=== PATIENT | male | born 1980 | race Caucasian/White ===

== ENCOUNTER 2021-07-11 15:51 | Inpatient (IN) | payer BC ==
[~2021-07-11] VITALS: Ht 170.2 cm; Wt 141.1 kg
[2021-07-11 17:02] LABS: BASOPHILS % (AUTO) 0.4 % (0-1); EOSINOPHILS # (AUTO) 0.2 X10'3 (0-0.9); EOSINOPHILS % (AUTO) 1.6 % (0-6); HEMATOCRIT 38.6 % (42.0-52.0); HEMOGLOBIN 12.8 g/dl (14.0-17.9); LYMPHOCYTES # (AUTO) 2.6 X10'3 (1.1-4.8); LYMPHOCYTES % (AUTO) 25.1 % (21-51); MEAN CORPUSCULAR HEMOGLOBIN 27.6 PG (27.0-31.0); MEAN CORPUSCULAR HGB CONC 33.1 g/dL (33.0-36.5); MEAN CORPUSCULAR VOLUME 83.4 FL (78-98); MEAN PLATELET VOLUME 6.3 FL (7.4-10.4); MONOCYTES # (AUTO) 0.6 X10'3 (0-0.9); NEUTROPHILS # (AUTO) 6.8 X10'3 (1.8-7.7); NEUTROPHILS % (AUTO) 66.9 % (42-75); PLATELET COUNT 228 X10'3 (140-440); RED BLOOD COUNT 4.63 X10'6 (4.70-6.10); RED CELL DISTRIBUTION WIDTH 15.3 % (11.5-14.5); WHITE BLOOD COUNT 10.2 X10'3 (4.5-11.0)
[2021-07-11 17:13] LABS: URINE AMPHETAMINE SCREEN NEGATIVE (Neg); URINE BARBITUATE SCREEN NEGATIVE (Neg); URINE BENZODIAZEPINES SCREEN NEGATIVE (Neg); URINE CANNABINOID SCREEN NEGATIVE (Neg); URINE COCAINE SCREEN NEGATIVE (Neg); URINE METHADONE SCREEN NEGATIVE (Neg); URINE OPIATE SCREEN NEGATIVE (Neg); URINE PHENCYCLIDINE SCREEN NEGATIVE (Neg)
[2021-07-11 17:29] LABS: CLARITY,URINE CLEAR (Clear); COLOR,URINE YELLOW (Yellow); GLUCOSE, URINE NEGATIVE (Neg); KETONES,URINE NEGATIVE (Neg); LEUKOCYTE ESTERASE ,URINE NEGATIVE (Neg); NITRITES, URINE NEGATIVE (Neg); OCCULT BLOOD,URINE NEGATIVE (Neg); PROTEIN,URINE NEGATIVE (Neg); UROBILINOGEN,URINE 0.2 E.U/dL (0.2-1.0)
[2021-07-11 17:30] LABS: UA COLLECTION TYPE URINAL
--- NOTE | 2021-07-11 17:32 | NUR ---
Received patient to bed #24. Pt ambulated independently, escorted by two PCT. Pt calm and cooperative.
[2021-07-11 17:33] LABS: ALANINE AMINOTRANSFERASE 35 U/L (12-78); ALBUMIN 3.7 G/DL (3.4-5.0); ALBUMIN/GLOBULIN RATIO 1.1 (1.1-1.5); ANION GAP 9 (8-16); ASPARTATE AMINO TRANSFERASE 20 U/L (10-37); BILIRUBIN,TOTAL 0.2 MG/DL (0.1-1.0); BLOOD UREA NITROGEN 15 MG/DL (7-18); CALCIUM 8.6 MG/DL (8.5-10.1); CHLORIDE 107 MMOL/L (99-107); ETHANOL < 0.010 GM/DL (0.0-0.010); GLUCOSE 88 MG/DL (70-104); POTASSIUM 4.1 MMOL/L (3.5-5.1); SODIUM 140 MMOL/L (135-145); TOTAL CARBON DIOXIDE 23.8 MMOL/L (24-32); TOTAL PROTEIN 7.1 G/DL (6.4-8.2); eGFR 83 ML/MIN
[2021-07-11] MEDS ORDERED: LATUDA PO (20:08)
[2021-07-11] MEDS ORDERED: CLON-527 PO (20:08)
[2021-07-11] MEDS ORDERED: FLUO20CA39 PO (20:08)
[2021-07-11] MEDS ORDERED: QUET-1 PO (20:08)
[2021-07-11] MEDS ORDERED: MULT-1085 PO (20:08)
[2021-07-11] MEDS ORDERED: IBUP-1984 PO (20:08)
--- NOTE | 2021-07-11 20:22 | NUR ---
Assumed care of the patient who was agitated and irritable. He refusded to answer most questions. Was very dramatic. Complain of high anxiety. Reports he feels like he is going to have a panic attack.
[2021-07-11] MEDS: clonazePAM 1mg tablet PO PRN (20:42)
[2021-07-11] MEDS: ibuprofen tablet 400 MG TABLET PO SCH (20:43)
--- NOTE | 2021-07-11 20:47 | NUR ---
Packet faxed to [facility]
[2021-07-11] MEDS ORDERED: quetiapine 100mg tablet PO SCH ×2 (21:00)
[2021-07-11] MEDS ORDERED: FLUoxetine 20mg capsule PO SCH (21:00)
[2021-07-11] MEDS ORDERED: LURASIDONE PO SCH ×2 (21:00)
[2021-07-11] MEDS ORDERED: QUEtiapine 25mg tablet PO SCH (21:00)
[2021-07-11] MEDS ORDERED: lurasidone 20mg tablet PO SCH (21:10)
[2021-07-11] MEDS ORDERED: LURA40TA2 PO (21:14)
--- NOTE | 2021-07-11 22:56 | NUR ---
THe patient appears to be sleeping
--- NOTE | 2021-07-11 23:53 | NUR ---
Nurse to nurse with [facility], Jesus
--- NOTE | 2021-07-12 00:27 | NUR ---
The patient appears to be sleeping
--- NOTE | 2021-07-12 01:54 | NUR ---
The patient appears to be sleeping
--- NOTE | 2021-07-12 04:35 | NUR ---
The patient appears to be sleeping
--- NOTE | 2021-07-12 07:00 | NUR ---
CARE ASSUMED JOSE MOURA RN. PT. VISIBLE ON THE UNIT LYING IN BED WITH EYES CLOSED. STAFF WILL CONTINUE TO MONITOR FOR SAFETY.
--- NOTE | 2021-07-12 08:45 | NUR ---
PT. AWAKE AT THIS TIME UP AMBULATED TO THE RESTROOM. PT. COMPLIANT WITH SCHEDULED MEDICATIONS. DENIES ANY CURRENT SI/HI OR A/V HALLUCINATIONS. PT. STATES HE SLEPT WELL AND FEELS BETTER OVERALL THIS MORNING. PT. ATE BREAKFAST THIS MORNING. VERBALIZE NO OTHER COMPLAINTS AT THIS TIME. STAFF WILL CONTINUE TO MONITOR FOR SAFETY.
[2021-07-12] MEDS: multivitamins, therapeutics tablet PO SCH (08:52)
[2021-07-12] MEDS: ibuprofen tablet 400 MG TABLET PO SCH ×2 (08:53→13:35)
--- NOTE | 2021-07-12 10:45 | NUR ---
PT. VISIBLE ON THE UNIT LYING IN BED RESTING. [employer] [employer] FROM INPATIENT UNIT IN AT THIS TIME, NOTIFIED PATIENT OF ACCEPTANCE TO THE INPATIENT UNIT. STAFF WILL CONTINUE TO MONITOR FOR SAFETY.
[2021-07-12] MEDS: clonazePAM 1mg tablet PO PRN ×2 (11:49→16:43)
--- NOTE | 2021-07-12 11:52 | NUR ---
PT. SITTING ON THE EDGE OF BED ROCKING BACKAND FORTH. PT. PRESENTS ANXIOUS UPON APPROACH. MEDICATED WITH KLONOPIN 1MG PO. STAFF WILL CONTINUE TO MONITOR FOR SAFETY.
--- NOTE | 2021-07-12 12:15 | NUR ---
PT. CALLED AT THIS TIME STATE SHE WILL BE IN TO VISIT. ALSO REQUESTING AN OFF DUTY STATUS FROM WORK LETTER FOR PATIENT. STATES SHE DOESN'T FEEL LIKE THE PATIENT IS ABLE TO RETURN TO WORK AT THIS TIME.
[2021-07-12] MEDS ORDERED: diphenhydrAMINE 50 mg/ml inj IM ONE (13:25)
[2021-07-12] MEDS ORDERED: LORazepam 2 mg/ml vial IM ONE (13:25)
--- NOTE | 2021-07-12 13:25 | NUR ---
PT. PLACED HIMSELF OM THE FLOOR AND BEGAN BANGING HIS HEAD. STAFF INTERVENED AND ASSISTED PT. BACK INTO THE BED. PT. CONTINUES TO REPEAT," I'VE DONE NOTHING WRONG , I'VE DONE NOTHING WRONG". PT. PRESENTS WITH INCREASED ANXIETY AND PARANOID. PT. HAS SMALL ALDAIR AREA ON FOREHEAD SKIN INTACT. DR. HAWKINS NOTIFIED OF PATIENT BEHAVIOR. ORDERED RECEIVED FOR ATIVAN 2MG AND BENADRYL 50 MG IM X 1 DOSE. STAFF WILL CONTINUE TO MONITOR.
--- NOTE | 2021-07-12 14:01 | NUR ---
AT BEDSIDE AT THIS TIME. AWAITNG PT. TRANSFER TO [facility].
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
--- NOTE | 2021-07-12 15:19 | NUR ---
TERRENCE THAO FROM INPATIENT BEHAVIORAL UNIT ON UNIT TO TRANSPORT PATIENT UPSTAIRS. REPORT GIVEN TO TERRENCE. PT. ESCORTED OF UNIT WITH RN AND SECURITY . PT. PERSONAL BELONGINGS GIVEN TO THE NURSE.
[2021-07-12] MEDS ORDERED: loperamide 2mg capsule PO PRN (15:45)
[2021-07-12] MEDS ORDERED: TRAZ-251 PO (15:45)
[2021-07-12] MEDS ORDERED: magnesium hydroxide 30ml (MOM) UD suspension PO PRN (15:45)
[2021-07-12] MEDS ORDERED: QUET25TA36 PO (15:45)
[2021-07-12] MEDS ORDERED: acetaminophen 325mg tablet PO PRN ×2 (15:45)
[2021-07-12] MEDS ORDERED: FLUO-167 PO (15:45)
[2021-07-12] MEDS ORDERED: CLON-371 PO (15:45)
[2021-07-12] MEDS ORDERED: mag hydrox/Alum hydrox/simeth 30ml oral suspension PO PRN (15:45)
[2021-07-12] MEDS ORDERED: lurasidone 20mg tablet PO SCH (18:05)
[2021-07-12] MEDS ORDERED: clonazePAM 1mg tablet PO PRN (18:05)
[2021-07-12 19:33] VITALS: BP 128/77
[2021-07-12] MEDS: FLUoxetine 20mg capsule PO SCH (20:06)
[2021-07-12] MEDS ORDERED: quetiapine 100mg tablet PO SCH (21:00)
[2021-07-12] MEDS: traZODone 50mg tablet PO PRN (22:18)
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
[2021-07-13 07:17] VITALS: BP 144/82
[2021-07-13] MEDS ORDERED: FLUoxetine 20mg capsule PO SCH (08:00)
[2021-07-13] MEDS ORDERED: QUEtiapine 25mg tablet PO SCH (08:00)
[2021-07-13] MEDS: multivitamins, therapeutics tablet PO SCH (08:20)
[2021-07-13 10:07] LABS: BASOPHILS % (AUTO) 0.4 % (0-1); EOSINOPHILS # (AUTO) 0.2 X10'3 (0-0.9); EOSINOPHILS % (AUTO) 2.7 % (0-6); HEMATOCRIT 39.9 % (42.0-52.0); HEMOGLOBIN 12.9 g/dl (14.0-17.9); LYMPHOCYTES # (AUTO) 1.6 X10'3 (1.1-4.8); LYMPHOCYTES % (AUTO) 24.3 % (21-51); MEAN CORPUSCULAR HEMOGLOBIN 27.1 PG (27.0-31.0); MEAN CORPUSCULAR HGB CONC 32.3 g/dL (33.0-36.5); MEAN CORPUSCULAR VOLUME 83.8 FL (78-98); MEAN PLATELET VOLUME 6.3 FL (7.4-10.4); MONOCYTES # (AUTO) 0.3 X10'3 (0-0.9); NEUTROPHILS # (AUTO) 4.5 X10'3 (1.8-7.7); NEUTROPHILS % (AUTO) 67.6 % (42-75); PLATELET COUNT 204 X10'3 (140-440); RED BLOOD COUNT 4.76 X10'6 (4.70-6.10); WHITE BLOOD COUNT 6.7 X10'3 (4.5-11.0)
[2021-07-13 10:24] LABS: HEMOGLOBIN A1C 5.6 % (4.5-6.2)
[2021-07-13 10:44] LABS: ALANINE AMINOTRANSFERASE 34 U/L (12-78); ALBUMIN 3.5 G/DL (3.4-5.0); ALBUMIN/GLOBULIN RATIO 1.1 (1.1-1.5); ALKALINE PHOSPHATASE 79 IU/L (46-116); ANION GAP 7 (8-16); ASPARTATE AMINO TRANSFERASE 28 U/L (10-37); BILIRUBIN,TOTAL 0.2 MG/DL (0.1-1.0); BLOOD UREA NITROGEN 16 MG/DL (7-18); BUN/CREATININE RATIO 12.7 (5.4-32.0); CALCIUM 8.7 MG/DL (8.5-10.1); CHLORIDE 105 MMOL/L (99-107); CHOL/HDL RATIO 5.4 (0.00-4.99); CHOLESTEROL 223 MG/DL (0-200); CREATININE 1.26 MG/DL (0.60-1.10); GLUCOSE 139 MG/DL (70-104); HDL CHOLESTEROL 41 MG/DL (35-60); LDL CHOLESTEROL 146 MG/DL (50-100); POTASSIUM 4.4 MMOL/L (3.5-5.1); SODIUM 139 MMOL/L (135-145); TOTAL CARBON DIOXIDE 26.6 MMOL/L (24-32); TOTAL PROTEIN 6.6 G/DL (6.4-8.2); TRIGLYCERIDES 145 MG/DL (20-135); eGFR 63 ML/MIN
[2021-07-13] MEDS ORDERED: LORazepam 1 MG tablet PO ONE (13:50)
[2021-07-13] MEDS ORDERED: QUEtiapine 25mg tablet PO ONE (13:50)
[2021-07-13] MEDS ORDERED: QUEtiapine 25mg tablet PO PRN (14:25)
[2021-07-13] MEDS ORDERED: clonazePAM 1mg tablet PO PRN (14:25)
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
[2021-07-13] MEDS ORDERED: lurasidone 20mg tablet PO SCH (18:00)
[2021-07-13 19:12] VITALS: BP 114/67
[2021-07-13] MEDS: FLUoxetine 20mg capsule PO SCH (20:12)
[2021-07-13] MEDS: quetiapine 100mg tablet PO SCH (20:12)
[2021-07-13] MEDS: clonazePAM 1mg tablet PO SCH (20:12)
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
[2021-07-14] MEDS: multivitamins, therapeutics tablet PO SCH (08:12)
[2021-07-14] MEDS: clonazePAM 1mg tablet PO SCH ×2 (08:12→20:45)
[2021-07-14] MEDS: QUEtiapine 25mg tablet PO SCH ×2 (08:13→13:01)
[2021-07-14 08:42] VITALS: BP 119/72
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
--- NOTE | 2021-07-14 16:47 | NUR ---
Pt's Latuda 40 mg QDD was D/c'd.
[2021-07-14 19:00] VITALS: BP 168/77
[2021-07-14] MEDS: quetiapine 100mg tablet PO SCH (20:45)
[2021-07-14] MEDS: traZODone 50mg tablet PO PRN (20:45)
[2021-07-14] MEDS: FLUoxetine 20mg capsule PO SCH (20:45)
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
[2021-07-15 07:59] VITALS: BP 129/87
[2021-07-15] MEDS: multivitamins, therapeutics tablet PO SCH (08:25)
[2021-07-15] MEDS: QUEtiapine 25mg tablet PO SCH ×2 (08:25→13:08)
[2021-07-15] MEDS: clonazePAM 1mg tablet PO SCH (08:25)
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
[2021-07-15 19:18] VITALS: BP 161/95
--- NOTE | 2021-07-16 04:05 | NUR ---
AMA DISCHARGE NOTE: Client was sitting on the bed in his room, his stuffed dog was sitting in a box beside him. Client stated, "I want to leave." This RN encouraged the client to stay the night and speak with the MD in the am. Client would not discuss his reason for leaving. Dr. Pedro Pablo Drake was notified and spoke with the client. Client continued to state his desire to leave. Clients belongings were inventoried. Client contacted his . Bogdan Brar escorted the client to the main entrance to meet clients . Client left unit at 19:15. AO x $.
== END 2021-07-15 19:15 | disposition left against medical advice (07) | DRG 885 ==
LOC: ER 15:52 → ED HOLD 07-12 10:55 → ADULT MH 07-12 15:32
PROVIDERS: ADMIT Psychiatry & Neurology Psychiatry; ATTEND Psychiatry & Neurology Psychiatry
DX: F39 Unspecified mood [affective] disorder (principal); Z68.42 Body mass index [BMI] 45.0-49.9, adult; F22 Delusional disorders; E66.01 Morbid (severe) obesity due to excess calories; S00.81XA Abrasion of other part of head, initial encounter; X58.XXXA Exposure to other specified factors, initial encounter; Z53.29 Procedure and treatment not carried out because of patient's decision for other reasons; Z20.822 Contact with and (suspected) exposure to COVID-19; F31.9 Bipolar disorder, unspecified; Z79.899 Other long term (current) drug therapy; Z81.8 Family history of other mental and behavioral disorders; Z87.891 Personal history of nicotine dependence; Y93.89 Activity, other specified; Y92.89 Other specified places as the place of occurrence of the external cause; Y99.8 Other external cause status
CPT/HCPCS: 36415; 80053; 80061; 80305; 80320; 81003; 83036; 84443; 85025; 87081; 87635; 99285; C9803; J1200; J2060